=== PATIENT | female | born 1985 | race Two or more races ===

== ENCOUNTER 2018-12-16 12:26 | Inpatient (IN) | payer OTHER ==
[2018-12-16] MEDS ORDERED: OXYTOCIN 30 UNITS in 0.9% NS 30 UNIT/500 ML INFUS.BAG IVPB SCH (12:27)
[2018-12-16] MEDS ORDERED: ELECTROLYTE-148 SOLN 1,000 ML IV SCH (12:27)
[2018-12-16 13:31] VITALS: BMI 29.7
[2018-12-16] MEDS ORDERED: OXYTOCIN 30 UNITS in 0.9% NS 30 UNIT/500 ML INFUS.BAG IVPB ONE (13:51)
[2018-12-16 14:12] LABS: BASO % 0.1 % (0-2.0); HEMOGLOBIN 11.4 GM/dL (10.7-15.3); LYMPH % 14.6 % (8-40); MCH 29.8 pg (25.7-33.7); MCHC 33.5 g/dl (32.0-36.0); MEAN PLT VOLUME 8.5 fl (7.5-11.1); MONO % 9.8 % (3.8-10.2); NEUT % 74.5 % (42.8-82.8); PLATELET COUNT 231 K/MM3 (134-434); RBC 3.82 M/mm3 (3.60-5.2); RDW 14.6 % (11.6-15.6)
[2018-12-16 14:25] LABS: INR 0.97 (0.83-1.09); PROTHROMBIN TIME (PATIENT) 11.4 SEC (9.7-13.0)
[2018-12-16 14:27] LABS: ACTIVATED PTT 26.3 SECONDS (25.2-36.5)
[2018-12-16 14:31] LABS: BLOOD UREA NITROGEN 9.4 mg/dL (7-18); CALCIUM 9.4 mg/dL (8.5-10.1); CREATININE 0.5 mg/dL (0.55-1.3); POTASSIUM 4.2 mmol/L (3.5-5.1)
[2018-12-16] MEDS ORDERED: FENTANYL/BUPIVACAINE/NS/PF - PCEA - 50 ML DISP.SYRIN EP ONE (19:11)
[2018-12-16] MEDS ORDERED: BUPIVACAINE HCL/PF 0.25% (2.5MG/ML) 10 ML VIAL ONE (19:21)
--- NOTE | 2018-12-16 19:30 | HP ---
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: Alzheimer's, CVA, Dementia, Migraine, Multiple Sclerosis, Peripheral Neuropathy, Parkinson's, Seizure, Syncope, TIA, Vertigo, Other Cardiovascular: No: AFIB, Aneurysm, Aortic Insufficiency, Aortic Stenosis, CAD, CHF, Deep Vein Thrombosis, HTN, Hyperlipdemia, CT, Mitral Insufficiency, Mitral Stenosis, Murmur, Pulmonary Hypertension, Other Pulmonary: No: Asthma, Bronchitis, Cancer, COPD, O2 Dependent, Pneumonia, Previously Intubated, Pulmonary Embolus, Pulmonary Fibrosis, Sleep Apnea, Other Gastrointestinal: No: Ascites, Cancer, Constipation, Crohn's Disease, Diverticulitis, Diverticulosis, Esophageal Varices, Gastritis, GERD, GI Bleed, Hemorrhoids, Hiatal Hernia, Inflamatory Bowel Disease, Irritable Bowel Disease, Pancreatitis, Peptic Ulcer Disease, Ulcerative Colitis, Other Hepatobiliary: No: Cirrhosis, Cholelithiasis, Cholecystitis, Choledocholithiasis , Hepatitis A, Hepatitis B, Hepatitis C, Other Renal/: No: Renal Failure, Renal Inusuff, BPH, Cancer, Hematuria, Hemodialysis , Neurogenic Bladder, Renal Calculi, UTI, Other Reproductive: No: Ectopic , Endometriosis, Fibroids, PID, Polycystic Ovary Syndrome, Postmenopausal, Other ...: 2 ...Para: 1 ...Term: 1 ...: 0 ...Spon : 0 ...Induced : 0 ...Multiple Gestation: 0 ...LMP: 03/10/18 ... Weeks Gestation by Dates: 40.1 ...EDC by Dates: 12/15/18 ...EDC by Sono: 12/15/18 Heme/Onc: No: Anemia, B12 Deficiency, Bleeding Disorder, Cancer, Current Chemotherapy, Current Radiation Therapy, Hemochromatosis, Hypercoaguable State, Myeloproliferative Synd, Sickle Cell Disease, Sickle Cell Trait, Thrombocytopenia, Other Infectious Disease: No: AIDS, C-Diff, Herpes Zoster, HIV, MRSA, STD's, Tuberculosis, VREF, Other Psych: No: Addictions, Anxiety, Bipolar, Depression, Panic, Psychosis, Schizophrenia, Other Musculoskeletal: No: Bursitis, Chronic low back pain, Hemiparesis, Hemiplegia, Osteoarthritis, Paraplegia, Other Rheumatology: No: Fibromyalgia, Gout, Lupus, Rheumatoid Arthritis, Sarcoidosis, Vasculitis, Other ENT: No: Allergic Rhinitis, Sinusitis, Other Endocrine: No: [place]'s Disease, Horacio's Disease, Diabetes Insipidus, Diabetes Mellitus, Hyperparathyroidism, Hyperthyroidism, Hypothyroidism, Osteopenia, SIADH, Other Dermatology: No: Basal Cell, Cellulitis, Eczema, Melanoma, Psoriasis, Squamous Cell, Other - Past Surgical History Past Surgical History: No: None, AAA Repair, AICD, Amputation, Appendectomy, Arthrosocopy, AV Fistula/Graft, Bariatric Surgery, Breast Biopsy, Bypass, CABG, Carotid Endarterectomy, Cataract Removal, Cholecystectomy, Colectomy, Colonoscopy, Colostomy, Craniotomy, , Cystectomy, Hernia Repair, Hysterectomy, Ileal Conduit, Ileosotomy, Joint Replacement, Kidney Transplant, Laminectomy, Liver Transplant, Mastectomy, Nephrectomy, Oopherectomy, Orchiectomy, Permanent Pacemaker, Prostatectomy, Splenectomy, Stent, Thoracotomy , TURP, Tonsillectomy, Tubal Ligation, Upper Endoscopy, Valve Replacement, Vasectomy, Vein Stripping/Ligation Hx Myomectomy: No Hx Transabdominal Cerclage: No - Advance Directives Advance Directives: Yes: Living Will - Smoking History Smoking history: Never smoked Have you smoked in the past 12 months: No - Alcohol/Substance Use Hx Alcohol Use: No History of Substance Use: reports: None - Social History Usual Living Arrangement: Yes: With Spouse ADL: Independent History of Recent Travel: No Home Medications - Allergies Allergies/Adverse Reactions: Allergies Allergy/AdvReac Type Severity Reaction Status Date / Time Penicillins Allergy Severe Swelling Verified 12/16/18 13:09 - Home Medications Home Medications: Ambulatory Orders Tablet 1 tab PO DAILY 12/16/18 Family Disease History - Family Disease History Family History: Denies Review of Systems Unable to obtain ROS, reason: none - Review of Systems Constitutional: reports: No Symptoms Eyes: reports: No Symptoms HENT: reports: No Symptoms Neck: reports: No Symptoms Cardiovascular: reports: No Symptoms Respiratory: reports: No Symptoms Gastrointestinal: reports: No Symptoms Genitourinary: reports: No Symptoms Breasts: reports: No Symptoms Reported Musculoskeletal: reports: No Symptoms Integumentary: reports: No Symptoms Neurological: reports: No Symptoms Endocrine: reports: No Symptoms Hematology/Lymphatic: reports: No Symptoms Psychiatric: reports: No Symptoms Physical Exam - Maternity Vital Signs: Vital Signs Temperature 98.1 F 12/16/18 17:49 Pulse Rate 58 L 12/16/18 19:01 Respiratory Rate 20 12/16/18 19:01 Blood Pressure 120/66 12/16/18 19:01 O2 Sat by Pulse Oximetry (%) Constitutional: Yes: Well Nourished, No Distress, Calm Eyes: Yes: WNL, Conjunctiva Clear, EOM Intact HENT: Yes: WNL, Atraumatic, Normocephalic Neck: Yes: WNL, Supple, Trachea Midline Cardiovascular: Yes: WNL, Regular Rate and Rhythm Lungs: Clear to auscultation Breast(s): Yes: WNL - Abdominal Exam/OB Fundal Height: 40 Number of Fetuses: Single Presentation: Vertex Contractions: Yes Regularity: Regular Intensity: Mild/Mod Monitor Mode: External Heart Rate Location: [facility] Category: I Accelerations: Uniform Decelerations: None - Vaginal Exam/OB Vaginal Bleediing: No Speculum Exam: No Dilatation (cm): 3 Effacement (%): 70 Amniotic Membrane Status: Intact Presentation: Vertex/Position Station: -2 - Physical Exam Musculoskeletal: Yes: WNL Extremities: Yes: WNL Edema: No Integumentary: Yes: WNL Deep Tendon Reflex Grade: Normal +2 ...Motor Strength: WNL Psychiatric: Yes: WNL, Alert, Oriented - Labs Lab Results: CBC, BMP 12/16/18 13:53 12/16/18 13:53 Hemorrhage Risk Assessment - Risk Factors Risk Score: 0 Risk Level: Low Risk Assessment/Plan for sp labor, will augent joseph gonzalez
--- NOTE | 2018-12-16 19:31 | PN ---
Progress Note (short form) - Note Progress Note: 715 pm, cx 4 cm 70%-2 , on pit, q 5 m, asking for epidural
[2018-12-16] MEDS ORDERED: NALOXONE HCL 0.4 MG/ML VIAL IVPUSH PRN (19:47)
[2018-12-16] MEDS ORDERED: FENTANYL/BUPIVACAINE/NS/PF - PCEA - 50 ML DISP.SYRIN EP SCH (20:00)
[2018-12-16] MEDS ORDERED: OXYTOCIN 20 UNITS in 0.9% NS 20 UNIT/1,000 ML INFUS.BAG IV ONE (22:11)
[2018-12-16] MEDS ORDERED: LIDOCAINE HCL 1% PRESERVATIVE FREE - 30ML VIAL ONE (22:11)
--- NOTE | 2018-12-16 23:36 | PN ---
Progress Note (short form) - Note Progress Note: 9pm 8 cm, -1, 90%, uc q 3, variable deccel, , recoverable
[2018-12-16] MEDS ORDERED: METHYLERGONOVINE MALEATE 0.2 MG/1 ML AMP IM PRN (23:39)
[2018-12-16] MEDS ORDERED: BENZOCAINE 20% 57 GM BOTTLE TP PRN (23:39)
[2018-12-16] MEDS ORDERED: oxyCODONE HCL 5 MG TABLET PO PRN (23:39)
[2018-12-16] MEDS ORDERED: BENZOCAINE 28 GM HEMORRHOIDAL OINTMENT TP PRN (23:39)
[2018-12-16] MEDS ORDERED: BISACODYL 10 MG SUPP.RECT RC PRN (23:39)
[2018-12-16] MEDS ORDERED: WITCH HAZEL 50% (TUCKS) 40 PAD/JAR PAD TP PRN (23:39)
--- NOTE | 2018-12-16 23:39 | PN ---
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
[2018-12-16] MEDS ORDERED: OXYTOCIN 20 UNITS in 0.9% NS 20 UNIT/1,000 ML INFUS.BAG IV SCH (23:45)
[2018-12-17] MEDS: ACETAMINOPHEN 325 MG TABLET (FP) PO PRN ×2 (05:38→17:33)
[2018-12-17] MEDS: IBUPROFEN 600 MG TABLET (FP) PO PRN ×2 (05:38→17:33)
[2018-12-17 07:31] LABS: BASO % 0.1 % (0-2.0); EOS % 0.2 % (0-4.5); HEMATOCRIT 32.9 % (32.4-45.2); HEMOGLOBIN 10.9 GM/dL (10.7-15.3); LYMPH % 7.7 % (8-40); MCH 29.5 pg (25.7-33.7); MCHC 33.1 g/dl (32.0-36.0); MEAN CELL VOLUME 89.2 fl (80-96); MEAN PLT VOLUME 8.8 fl (7.5-11.1); MONO % 9.6 % (3.8-10.2); NEUT % 82.4 % (42.8-82.8); RBC 3.69 M/mm3 (3.60-5.2); RDW 14.5 % (11.6-15.6); WHITE BLOOD COUNT 13.7 K/mm3 (4.0-10.0)
[2018-12-17 08:24] LABS: PLATELET COUNT 217 K/MM3 (134-434)
[2018-12-17] MEDS ORDERED: SENNOSIDES/DOCUSATE COMBO (SENNA PLUS) TABLET (UD) PO PRN (22:00)
[2018-12-18] MEDS: ACETAMINOPHEN 325 MG TABLET (FP) PO PRN ×2 (05:59→13:06)
[2018-12-18] MEDS: IBUPROFEN 600 MG TABLET (FP) PO PRN ×2 (05:59→13:06)
[2018-12-18 09:40] VITALS: BP 128/69; PULSE 76; TEMP 97.9
--- NOTE | 2018-12-18 12:27 | PN ---
Post Progress Note - Subjective Subjective: doing well Post Day: 2 Type of Delivery: Vital Signs: Vital Signs Temperature 97.9 F 12/18/18 09:29 Pulse Rate 76 12/18/18 09:29 Respiratory Rate 18 12/18/18 09:29 Blood Pressure 128/69 12/18/18 09:29 O2 Sat by Pulse Oximetry (%) 98 12/17/18 01:30 Breast Exam: Yes: Soft Uterus: Yes: Fundus Firm, Fundus below umbilicus Abdomen/GI: Yes: Abdomen soft, Tolerating PO Lochia: Yes: [place]ba Lochia, amount: Small Extremities: Yes: Calves non-tender Perineum: Yes: Intact - Labs Labs: CBC WBC 13.7 K/mm3 (4.0-10.0) H 12/17/18 06:43 RBC 3.69 M/mm3 (3.60-5.2) 12/17/18 06:43 Hgb 10.9 GM/dL (10.7-15.3) 12/17/18 06:43 Hct 32.9 % (32.4-45.2) 12/17/18 06:43 MCV 89.2 fl (80-96) 12/17/18 06:43 MCH 29.5 pg (25.7-33.7) 12/17/18 06:43 MCHC 33.1 g/dl (32.0-36.0) 12/17/18 06:43 RDW 14.5 % (11.6-15.6) 12/17/18 06:43 Plt Count 217 K/MM3 (134-434) 12/17/18 06:43 MPV 8.8 fl (7.5-11.1) 12/17/18 06:43 Absolute Neuts (auto) 11.2 K/mm3 (1.5-8.0) H 12/17/18 06:43 Neutrophils % 82.4 % (42.8-82.8) 12/17/18 06:43 Lymphocytes % 7.7 % (8-40) L D 12/17/18 06:43 Monocytes % 9.6 % (3.8-10.2) 12/17/18 06:43 Eosinophils % 0.2 % (0-4.5) 12/17/18 06:43 Basophils % 0.1 % (0-2.0) 12/17/18 06:43 Nucleated RBC % 0 % (0-0) 12/17/18 06:43 Assessment/Plan dc pt home today
--- NOTE | 2018-12-18 12:28 | DS ---
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 Signs: Vital Signs Temperature 97.9 F 12/18/18 09:29 Pulse Rate 76 12/18/18 09:29 Respiratory Rate 18 12/18/18 09:29 Blood Pressure 128/69 12/18/18 09:29 O2 Sat by Pulse Oximetry (%) 98 12/17/18 01:30 Constitutional: Yes: Well Nourished, No Distress, Calm Eyes: Yes: WNL, Conjunctiva Clear, EOM Intact HENT: Yes: WNL, Atraumatic, Normocephalic Neck: Yes: WNL, Supple, Trachea Midline Cardiovascular: Yes: WNL, Regular Rate and Rhythm Respiratory: Yes: WNL, Regular, CTA Bilaterally Gastrointestinal: Yes: WNL, Normal Bowel Sounds, Soft ...Rectal Exam: Yes: WNL Renal/: Yes: WNL Pelvis: Yes: WNL External Genitalia: Yes: Normal Internal Exam Deferred: No Vaginal Exam: Yes: Normal Cervix: Yes: Normal Uterus: Yes: Normal Adnexa: Normal: Bilateral ....Post : Yes: Uterus firm, Uterus non-tender Breast(s): Yes: WNL Musculoskeletal: Yes: WNL Extremities: Yes: WNL Edema: Yes Edema: LUE: 1+, RUE: 1+, LLE: 1+, RLE: 1+ Integumentary: Yes: WNL Wound/Incision: Yes: Clean/Dry, Well Approximated Neurological: Yes: WNL, Alert, Oriented ...Motor Strength: WNL Psychiatric: Yes: WNL, Alert, Oriented Labs: CBC, BMP 12/17/18 06:43 12/16/18 13:53 Delivery - Delivery Type of Anesthesia: Local, Epidural Episiotomy/Laceration: Right Mediolateral EBL (cc): 200 Delivery, Single - Stages of Labor Date 1st Stage Initiatied: 12/16/18 Time 1st Stage Initiated: 02:00 Date 2nd Stage Initiated: 12/16/18 Time 2nd Stage Initiated: 23:00 Date of Delivery: 12/16/18 Time of Delivery: 23:11 Time Placenta Delivered: 23:15 Placenta: Yes: Spontaneous - Condition of Infant Client Application Support Specialist/Um Rn Present: [place]: Steffany Choi Infant Gender: Male Weight: 3.856 kg Position: OT Total Hours ROM (Hrs/Mins): 3hrs, 15 min - 1 Minute Total Score: 9 5 Minutes Total Score: 9 - [place] Feeding Plan Initial Plan: Exclusive throughout hospitalization Benefits of Exclusively reinforced: Yes Discharge Summary Reason For Visit: LABOR ADMISSION Condition: Stable - Instructions Diet, Activity, Other Instructions: regular Disposition: HOME - Home Medications Comprehensive Discharge Medication List: Ambulatory Orders Tablet 1 tab PO DAILY 12/16/18
== END 2018-12-18 15:10 | disposition home or self-care (01) | DRG 807 ==
LOC: JDEL 12:26 → JLDR 12:27 → J3W 12-17 01:50
PROVIDERS: ADMIT Obstetrics & Gynecology; ATTEND Obstetrics & Gynecology
PROC: 10E0XZZ Delivery of Products of Conception, External Approach (ICD-10-PCS; principal; 2018-12-16)
PROC: 0W8NXZZ Division of Female Perineum, External Approach (ICD-10-PCS; 2018-12-16)
DX: O80 Encounter for full-term uncomplicated delivery (principal); Z37.0 Single live birth; Z3A.40 40 weeks gestation of pregnancy
CPT/HCPCS: 36415; 59409; 80048; 85025; 85610; 85730; 86593; 86850; 86900; 86901